=== PATIENT | female | born 1985 | race Caucasian/White ===

== ENCOUNTER 2017-08-21 18:41 | Emergency (ER) | payer SELFPAY ==
[2017-08-21 20:49] LABS: Basophils % (Auto) 0.4 % (0.0-1.8); Eosinophils # (Auto) 0.1 K/mm3 (0.0-0.4); Eosinophils % (Auto) 0.8 % (0.0-4.3); Hematocrit 38.2 % (30.3-42.9); Hemoglobin 12.5 gm/dl (10.1-14.3); Lymphocytes # (Auto) 3.8 K/mm3 (1.2-5.4); Lymphocytes % (Auto) 34.8 % (13.4-35.0); Mean Corpuscular HGB Conc 33 % (30-34); Mean Corpuscular Hemoglobin 29 pg (28-32); Mean Corpuscular Volume 88 fl (79-97); Monocytes # (Auto) 0.8 K/mm3 (0.0-0.8); Monocytes % (Auto) 7.1 % (0.0-7.3); Platelet Count 272 K/mm3 (140-440); Red Blood Count 4.34 M/mm3 (3.65-5.03); Red Cell Distribution Width 13.8 % (13.2-15.2)
[2017-08-21 21:21] LABS: Alanine Aminotransferase 14 units/L (7-56); BUN/Creatinine Ratio 27; Blood Urea Nitrogen 16 mg/dL (7-17); Hemolysis Index 5; Lipase 21 units/L (13-60)
[2017-08-21] MEDS ORDERED: TYLENOL PO ONE (22:28)
[2017-08-22 01:56] LABS: Bacteria,Urine 1+ /HPF (Negative); Bilirubin,Urine NEG (Negative); Blood,Urine SM (Negative); Color,Urine Yellow (Yellow); Nitrite,Urine NEG (Negative); Protein,Urine <15 mg/dL mg/dL (Negative); Urobilinogen,Urine < 2.0 mg/dL (<2.0)
[2017-08-22 03:39] VITALS: BP 112/61
[2017-08-22 07:50] LABS: Hyaline Casts,Urine 1 /LPF
== END 2017-08-22 10:09 | disposition left against medical advice (07) ==
LOC: ED 18:41
DX: R10.9 Unspecified abdominal pain (principal); Z53.21 Procedure and treatment not carried out due to patient leaving prior to being seen by health care provider
CPT/HCPCS: 36415; 80053; 81001; 83690; 84703; 85025

== ENCOUNTER 2017-08-22 12:34 | Inpatient (IN) | payer OTHER ==
[2017-08-22 14:45] LABS: Basophils % (Auto) 0.5 % (0.0-1.8); Eosinophils # (Auto) 0.1 K/mm3 (0.0-0.4); Eosinophils % (Auto) 0.8 % (0.0-4.3); Hematocrit 38.7 % (30.3-42.9); Hemoglobin 12.9 gm/dl (10.1-14.3); Lymphocytes # (Auto) 2.6 K/mm3 (1.2-5.4); Lymphocytes % (Auto) 27.6 % (13.4-35.0); Mean Corpuscular HGB Conc 33 % (30-34); Mean Corpuscular Hemoglobin 29 pg (28-32); Mean Corpuscular Volume 88 fl (79-97); Monocytes # (Auto) 0.6 K/mm3 (0.0-0.8); Monocytes % (Auto) 5.9 % (0.0-7.3); Platelet Count 260 K/mm3 (140-440); Red Blood Count 4.42 M/mm3 (3.65-5.03); Red Cell Distribution Width 13.8 % (13.2-15.2)
[2017-08-22 15:00] LABS: HCG Qualitative,Urine Negative (Negative)
[2017-08-22 15:02] LABS: Bacteria,Urine 1+ /HPF (Negative); Bilirubin,Urine NEG (Negative); Blood,Urine SM (Negative); Color,Urine Yellow (Yellow); Mucus,Urine FEW /HPF; Nitrite,Urine NEG (Negative); Protein,Urine <15 mg/dL mg/dL (Negative); Urobilinogen,Urine < 2.0 mg/dL (<2.0)
[2017-08-22 15:06] LABS: Alanine Aminotransferase 15 units/L (7-56); Albumin 4.2 g/dL (3.9-5); BUN/Creatinine Ratio 24; Blood Urea Nitrogen 12 mg/dL (7-17); Calcium 9.1 mg/dL (8.4-10.2); Hemolysis Index 17; Lipase 15 units/L (13-60)
[2017-08-22 15:07] LABS: Bilirubin,Direct < 0.2 mg/dL (0-0.2)
--- NOTE | 2017-08-22 15:52 | Emergency Department Report ---
HPI - General Chief Complaint: Abdominal Pain Time Seen by Provider: 08/22/17 14:40 - HPI HPI: 32-year-old female presents to the emergency department with right upper quadrant abdominal pain has been going on for the past week but worsened in the past 2 days. She has some mild nausea with one episode of vomiting. She denies any fever, dysuria, vaginal bleeding or discharge. The patient was supposed to have a cholecystectomy done a week ago but she was found not to have insurance and was denied, allegedly. She went to see Dr. Cleveland in his office today and was told to come to the emergency department for suspected cholecystitis. She was given a dose of Levaquin prior to arrival. She denies any other past medical history. She denies tobacco or illicit drug use or abuse. ED Past Medical Hx - Past Medical History Previous Medical History?: No Hx Kidney Stones: Yes - Surgical History Past Surgical History?: No - Social History Smoking Status: Never Smoker Substance Use Type: None - Medications Home Medications: Home Medications Medication Instructions Recorded Confirmed Last Taken Type Ibuprofen [Motrin] 800 mg PO TID PRN #20 tablet 09/04/13 08/22/17 Unknown Rx ED Review of Systems ROS: Stated complaint: ABDOMINAL PAIN Other details as noted in HPI Comment: All other systems reviewed and negative Constitutional: denies: chills, fever Eyes: denies: eye pain, eye discharge, vision change ENT: denies: ear pain, throat pain Respiratory: denies: cough, shortness of breath, wheezing Cardiovascular: denies: chest pain, palpitations Gastrointestinal: abdominal pain, nausea, vomiting Genitourinary: denies: urgency, dysuria, discharge Musculoskeletal: denies: back pain, joint swelling, arthralgia Skin: denies: rash, lesions Neurological: denies: headache, weakness, paresthesias Physical Exam - Physical Exam Vital Signs: Vital Signs 08/22/17 13:36 Temperature 98.2 F Pulse Rate 61 Respiratory 16 Rate Blood Pressure 101/32 O2 Sat by Pulse 99 Oximetry Physical Exam: GENERAL: The patient is well-developed well-nourished. HENT: Normocephalic. Atraumatic. Patient has moist mucous membranes. EYES: Extraocular motions are intact. Pupils equal reactive to light bilaterally. NECK: Supple. Trachea is midline. CHEST/LUNGS: Clear to auscultation. There is no respiratory distress noted. HEART/CARDIOVASCULAR: Regular. There is no tachycardia. There is no murmur. ABDOMEN: Abdomen is soft. There is tenderness palpation to the right upper quadrant of the abdomen. No guarding or rebound tenderness. Patient has normal bowel sounds. Obese habitus.. SKIN: Skin is warm and dry. NEURO: The patient is awake, alert, and oriented. The patient is cooperative. The patient has no focal neurologic deficits. The patient has normal speech. MUSCULOSKELETAL: There is no tenderness or deformity. There is no limitation range of motion. There is no evidence of acute injury. ED Course Vital Signs 08/22/17 13:36 Temperature 98.2 F Pulse Rate 61 Respiratory 16 Rate Blood Pressure 101/32 O2 Sat by Pulse 99 Oximetry ED Medical Decision Making - Lab Data Result diagrams: 08/22/17 14:27 08/22/17 14:27 - Radiology Data Radiology results: report reviewed EXAM: US ABDOMEN LIMITED HISTORY: RUQ pain, concern for cholecystitis TECHNIQUE: Ultrasound examination of the abdomen PRIORS: None. FINDINGS: Normal-appearing aorta, liver, gallbladder, common bile duct, and visible portion of pancreas. No right upper quadrant ascites. Normal right renal size measuring 10.3 x 5.9 x 4.6 cm. Normal right renal cortical thickness at 1.5 cm. Final image of the right kidney demonstrates mild separation of the renal sinus fat which may reflect mild hydronephrosis. No ultrasound evidence of caliectasis. IMPRESSION: Slight prominence of right renal pelvis on final image may reflect mild hydronephrosis Normal-appearing gallbladder and common bile duct Transcribed By: ALEKSANDR Dictated By: MARAH ALEXANDRE MD Electronically Authenticated By: MARAH ALEXANDRE MD Signed Date/Time: 08/22/17 1146 - Medical Decision Making Patient has been dealing with some biliary colic and/or gallbladder issues for the past week or so. Sent in by the general surgeon who saw her in the emergency department as well. Labs are unremarkable and ultrasound does not show any signs of cholelithiasis or cholecystitis. Patient will have a HIDA scan but currently the nuclear medicine lab is out of the necessary chemicals and/or testing supplies. Dr cleveland will admit the patient to his service for pain control and further evaluation. Sadia was bedside to assist with estonian translation. - Differential Diagnosis cholelithiasis, cholecystitis, pancreatitis, gastritis Critical Care Time: No Critical care attestation.: If time is entered above; I have spent that time in minutes in the direct care of this critically ill patient, excluding procedure time. ED Disposition Clinical Impression: Right upper quadrant abdominal pain, Biliary colic UTI (urinary tract infection) Qualifiers: Urinary tract infection type: acute cystitis Hematuria presence: without hematuria Qualified Code(s): N30.00 - Acute cystitis without hematuria Disposition: OP ADMIT IP TO THIS HOSP Is pt being admited?: Yes Condition: Stable Time of Disposition: 16:02
[2017-08-22] MEDS ORDERED: ZOFRAN IV ONE (16:35)
[2017-08-22] MEDS ORDERED: MORPHINE IV ONE (16:35)
[2017-08-22] MEDS ORDERED: NACL 0.9% 1000 ML 1,000 ML IV SCH (17:00)
[2017-08-22] MEDS ORDERED: D5/0.45NS 1,000 ML IV ONE (17:46)
[2017-08-22] MEDS: D5/0.45NS 1,000 ML IV SCH (17:51)
[2017-08-23] MEDS: ZOFRAN IV PRN ×3 (00:36→13:39)
[2017-08-23] MEDS: HEPARIN SUB-Q SCH ×4 (00:43→21:07)
[2017-08-23] MEDS: MORPHINE IV PRN ×2 (08:49→13:38)
[2017-08-23] MEDS: D5/0.45NS 1,000 ML IV SCH ×2 (08:50→18:03)
--- NOTE | 2017-08-23 14:06 | Progress Note ---
Assessment and Plan 32 y/o female c/o RUQ abd pain. GB US in ER a few wks back at [facility] described as "thickened GB wall" PMH & PSH neg Pt returns to ER now with persistent RUQ abd pain. + N&V Abd RUQ tenderness GB US - neg stones or thickened wall at this time r/o biliary colic/ dyskenesia admit keep NPO IVF hydration HIDA scan with EF Selected Entries 08/23/17 08/23/17 07:43 13:38 Temperature 98.1 F Pulse Rate 60 Respiratory 20 Rate Blood Pressure 104/58 Laboratory Tests 08/22/17 08/22/17 14:27 14:27 WBC 9.5 Hgb 12.9 Hct 38.7 Sodium 138 Potassium 4.4 Chloride 102.0 Carbon Dioxide 26 BUN 12 Creatinine 0.5 L Total Bilirubin 0.40 Direct Bilirubin < 0.2 AST 15 ALT 15 Alkaline Phosphatase 111 Amylase 27 Lipase 15 Objective Vital Signs - 12hr 08/23/17 08/23/17 08/23/17 05:05 07:43 08:49 Temperature 97.6 F 98.1 F Pulse Rate 49 L 60 Respiratory 20 12 20 Rate Blood Pressure 89/43 104/58 O2 Sat by Pulse 100 98 Oximetry 08/23/17 13:38 Temperature Pulse Rate Respiratory 20 Rate Blood Pressure O2 Sat by Pulse Oximetry - Labs 08/22/17 14:27 08/22/17 14:27 Diabetes panel 08/22/17 Range/Units 14:27 Sodium 138 (137-145) mmol/L Potassium 4.4 (3.6-5.0) mmol/L Chloride 102.0 (98-107) mmol/L Carbon Dioxide 26 (22-30) mmol/L BUN 12 (7-17) mg/dL Creatinine 0.5 L (0.7-1.2) mg/dL Glucose 84 (65-100) mg/dL Calcium 9.1 (8.4-10.2) mg/dL AST 15 (5-40) units/L ALT 15 (7-56) units/L Alkaline Phosphatase 111 (35-129) units/L Total Protein 7.6 (6.3-8.2) g/dL Albumin 4.2 (3.9-5) g/dL Calcium panel 08/22/17 Range/Units 14:27 Calcium 9.1 (8.4-10.2) mg/dL Albumin 4.2 (3.9-5) g/dL Pituitary panel 08/22/17 Range/Units 14:27 Sodium 138 (137-145) mmol/L Potassium 4.4 (3.6-5.0) mmol/L Chloride 102.0 (98-107) mmol/L Carbon Dioxide 26 (22-30) mmol/L BUN 12 (7-17) mg/dL Creatinine 0.5 L (0.7-1.2) mg/dL Glucose 84 (65-100) mg/dL Calcium 9.1 (8.4-10.2) mg/dL Adrenal panel 08/22/17 Range/Units 14:27 Sodium 138 (137-145) mmol/L Potassium 4.4 (3.6-5.0) mmol/L Chloride 102.0 (98-107) mmol/L Carbon Dioxide 26 (22-30) mmol/L BUN 12 (7-17) mg/dL Creatinine 0.5 L (0.7-1.2) mg/dL Glucose 84 (65-100) mg/dL Calcium 9.1 (8.4-10.2) mg/dL Total Bilirubin 0.40 (0.1-1.2) mg/dL AST 15 (5-40) units/L ALT 15 (7-56) units/L Alkaline Phosphatase 111 (35-129) units/L Total Protein 7.6 (6.3-8.2) g/dL Albumin 4.2 (3.9-5) g/dL
--- NOTE | 2017-08-23 14:35 | History and Physical Report ---
ADMITTING DIAGNOSIS: Rule out gallbladder disease. HISTORY OF PRESENT ILLNESS: The patient is a 32-year-old female, who was originally seen in [facility] Emergency Room 2 to 3 weeks ago with a chief complaint of right upper quadrant abdominal pain accompanied by nausea. Gallbladder ultrasound done at that institution revealed what was described as thickened gallbladder wall. right upper quadrant pain. Yesterday, her pain worsened and it was accompanied by nausea and vomiting. Thus, her arrival to the Emergency Room. PAST MEDICAL HISTORY: Negative. PAST SURGICAL HISTORY: Negative. ALLERGIES: No known allergies. MEDICATIONS: No medications. FAMILY HISTORY: Diabetes. SOCIAL HISTORY: Denies any smoking or drinking. REVIEW OF SYSTEMS: Noncontributory. PHYSICAL EXAMINATION: GENERAL: At this time reveals the patient to be awake, alert, and cooperative. Moderate discomfort, but no acute distress. VITAL SIGNS: Show her to be afebrile with a temperature of 98.1, blood pressure 104/58, pulse of 60, respirations of 20. HEENT: Her pupils are equal and reactive to light and accommodation. Sclerae is nonicteric. NECK: Supple, no thyromegaly or adenopathy. CHEST: Lungs clear to auscultation and percussion. HEART: Normal sinus rhythm. No gross murmurs. ABDOMEN: Examination of the abdomen reveals to be obese and soft. There is localized right upper quadrant tenderness with mild guarding. Bowel sounds are present, somewhat hypoactive. EXTREMITIES: Show full range of motion x 4, no edema or cyanosis. NEUROLOGIC: Grossly within normal limits. LABORATORY DATA: Lab work at present includes a CBC which shows a white count of 9.5, H and H is 12.9 and 38.7. Electrolytes were essentially within normal limits including sodium 138, potassium 4.4, chloride of 102, BUN is 12, creatinine is 0.5. LFTs are normal including total bilirubin of 0.4, AST is 15, ALT is also 15, alkaline phosphatase is 111. Amylase is 27. Lipase is 15. Gallbladder ultrasound done in ER reveals no evidence of any stones or gallbladder wall thickening at this time. However, the patient continues to have localized right upper quadrant pain and states that she cannot eat secondary to her pain and nausea. IMPRESSION: At this time is that of: 1. Rule out biliary dyskinesia. 2. Rule out biliary colic. RECOMMENDATION: At this time, we will keep the patient n.p.o., on IV fluid hydration. We will proceed with HIDA scan to rule out possible acalculous cholecystitis versus biliary dyskinesia. JOB# [id number] CELSO/BEAN
[2017-08-24] MEDS: D5/0.45NS 1,000 ML IV SCH ×2 (00:39→10:06)
[2017-08-24] MEDS: HEPARIN SUB-Q SCH ×2 (05:47→17:28)
[2017-08-24] MEDS ORDERED: WATER FOR INJ (PF) 10 ML ONE (07:30)
[2017-08-24] MEDS ORDERED: KINEVAC IV ONE ×2 (07:31→07:32)
[2017-08-24] MEDS ORDERED: WATER FOR INJ (PF) IV ONE (07:34)
--- NOTE | 2017-08-24 09:28 | Nuclear Medicine Report ---
Nuclear gallbladder imaging with ejection fraction: Right upper quadrant pain. Following injection of radionuclide anterior imaging of the liver is unremarkable. There is prompt visualization of the gallbladder at 20 minutes and the bowel is visualized at 45 minutes. Kinevac was injected according to protocol in approximately 60 minutes and the patient's symptoms were reproduced. A peak ejection fraction of 8% is noted at 20 minutes. Impression: Patent cystic duct. 8% ejection fraction.
--- NOTE | 2017-08-24 12:25 | Progress Note ---
Assessment and Plan Pt c/o RUQ abd pain Abd soft. localized tenderness HIDA - inj immediately mimicked RUQ pain symptoms. also very low 8% EF imp - severely symptomatic biliary dyskenesia will proceed with lap GB in am. risks, indications and complications reviewed consent signed Selected Entries 08/24/17 12:02 Temperature 98.5 F Pulse Rate 52 L Respiratory 18 Rate Blood Pressure 94/50 Objective Vital Signs - 12hr 08/24/17 08/24/17 08/24/17 00:43 04:45 09:08 Temperature 97.8 F 98.1 F Pulse Rate 56 L 57 L Respiratory 18 18 Rate Blood Pressure 94/60 87/42 Blood Pressure 94/49 [Left] O2 Sat by Pulse 99 98 Oximetry 08/24/17 12:02 Temperature 98.5 F Pulse Rate 52 L Respiratory 18 Rate Blood Pressure 94/50 Blood Pressure [Left] O2 Sat by Pulse 97 Oximetry - Labs 08/22/17 14:27 08/22/17 14:27
[2017-08-24] MEDS: NACL 0.9% 1000 ML 1,000 ML IV SCH (12:26)
[2017-08-24] MEDS: MORPHINE IV PRN ×2 (12:30→17:27)
--- NOTE | 2017-08-24 14:40 | Anesthesia Consultation ---
Anesthesia Consult and Med Hx Date of service: 08/24/17 - Airway Anesthetic Teeth Evaluation: Poor ROM Head & Neck: Adequate Mental/Hyoid Distance: Adequate Mallampati Class: Class III Intubation Access Assessment: Possibly Difficult - Pulmonary Exam CTA: Yes - Cardiac Exam Cardiac Exam: RRR - Pre-Operative Health Status ASA Pre-Surgery Classification: ASA2 Proposed Anesthetic Plan: General - Pre-Anesthesia Comment Pre-Anesthesia Comments: gallbladder disease - Other Systems Hx Obesity: Yes
[2017-08-24] MEDS ORDERED: VERSED IV NR (15:00)
[2017-08-25] MEDS: HEPARIN SUB-Q SCH ×2 (00:49→06:36)
[2017-08-25] MEDS ORDERED: PEPCID IV NR (05:00)
[2017-08-25] MEDS: D5/0.45NS 1,000 ML IV SCH (08:56)
[2017-08-25] MEDS ORDERED: MARCAINE 0.5% 30 ML INFILTRATI ONE (09:57)
[2017-08-25] MEDS ORDERED: MARCAINE 0.5% INFILTRATI ONE ×2 (10:12→12:18)
--- NOTE | 2017-08-25 10:31 | Anesthesia Day of Surgery ---
Anesthesia Day of Surgery - Day of Surgery Patient Examined: Yes Patient H&P Reviewed: Yes Patient is NPO: Yes
[2017-08-25] MEDS: NACL 0.9% 1000 ML 1,000 ML IV SCH (10:56)
[2017-08-25] MEDS ORDERED: VERSED IV NR (11:00)
[2017-08-25] MEDS ORDERED: DIPRIVAN 10 MG/ML IV ONE (11:07)
[2017-08-25] MEDS ORDERED: XYLOCAINE MPF 2% ONE (11:07)
[2017-08-25] MEDS ORDERED: SUBLIMAZE ONE (11:07)
[2017-08-25] MEDS ORDERED: DECADRON ONE (11:46)
[2017-08-25] MEDS ORDERED: PERCOCET 5/325 PO PRN (11:51)
[2017-08-25] MEDS ORDERED: ceFAZolin 2 GM in NACL 0.9% 100 ML IV ONE (11:56)
[2017-08-25] MEDS ORDERED: ANCEF/STERILE WATER 2 GM/20 ML 2 GM/20 ML SYRINGE IV ONE ×2 (11:59→12:00)
[2017-08-25] MEDS ORDERED: ZOFRAN ONE (12:31)
[2017-08-25] MEDS ORDERED: ROBINUL ONE ×2 (12:41→12:44)
[2017-08-25] MEDS ORDERED: NEOSTIGMINE ONE (12:41)
[2017-08-25] MEDS ORDERED: DILAUDID ONE (12:43)
[2017-08-25] MEDS: DILAUDID IV PRN ×4 (13:12→13:40)
--- NOTE | 2017-08-25 13:14 | Operative Report ---
PREOPERATIVE DIAGNOSIS: Gallbladder disease. POSTOPERATIVE DIAGNOSIS: Gallbladder disease. PROCEDURE: Laparoscopic cholecystectomy. SURGEON: Ben Morales MD. CUT OFF SAWYER: Dr. Bullard. ANESTHESIA: General. ESTIMATED BLOOD LOSS: Minimal. DRAINS: None. COMPLICATIONS: None. DESCRIPTION OF PROCEDURE: The patient was taken to the operating room and prepped and draped in usual sterile fashion. A Veress needle was inserted and CO2 insufflation begun. A 5 mm trocar was then inserted and camera inserted. All other trocars were inserted under direct visualization. Gallbladder was then grasped at the fundus and infundibulum and retracted towards the right subphrenic space. Dissection was then carried out along Calot's triangle. The cystic duct and artery were delineated in their entire course. Both were then doubly clipped and transected. Hook electrocautery was used to dissect the gallbladder from the overlying liver bed. Prior to the removal, the liver bed was inspected for bleeding and noted to be dry. The cystic duct and artery stumps were once again visualized. The clips were noted to be securely in place with no evidence of bleeding or bile leak. Gallbladder was then completely freed and brought out through the subxiphoid port. This area was inspected for bleeding and noted to be dry. Subxiphoid trocar was then gently inserted. All other 5 mm ports were removed under direct visualization. No bleeding or oozing noted. Subxiphoid trocar was then used to expel the CO2 and the trocar removed. The fascia at this site was closed with a [id number] 0 Vicryl suture. The skin at all port sites was closed with subcuticular 4-0 Vicryl. 0.5% Marcaine was infiltrated over the port sites for postoperative pain relief. The patient tolerated the procedure well and left the OR in stable condition. JOB# [id number] CELSO/BEAN
[2017-08-25] MEDS: MORPHINE IV PRN ×3 (14:47→21:42)
--- NOTE | 2017-08-25 15:41 | Post Anesthesia Evaluation ---
- Post Anesthesia Evaluation Patient Participated: Yes Airway Patent: Yes Stable Respiratory Function: Yes Nausea/Vomiting: No Temp > 96.8F: Yes Pain Manageable: Yes Adequeate Hydration: Yes Anesthesia Complications: No
[2017-08-25] MEDS: ZOFRAN IV PRN ×2 (18:02→21:42)
[2017-08-26] MEDS: MORPHINE IV PRN ×3 (04:44→16:00)
[2017-08-26 04:49] LABS: Basophils % (Auto) 0.4 % (0.0-1.8); Hematocrit 36.7 % (30.3-42.9); Hemoglobin 12.3 gm/dl (10.1-14.3); Lymphocytes % (Auto) 11.8 % (13.4-35.0); Mean Corpuscular HGB Conc 34 % (30-34); Mean Corpuscular Hemoglobin 29 pg (28-32); Mean Corpuscular Volume 86 fl (79-97); Monocytes # (Auto) 0.5 K/mm3 (0.0-0.8); Monocytes % (Auto) 5.4 % (0.0-7.3); Platelet Count 260 K/mm3 (140-440); Red Blood Count 4.28 M/mm3 (3.65-5.03); Red Cell Distribution Width 13.4 % (13.2-15.2)
[2017-08-26 05:45] LABS: Alanine Aminotransferase 51 units/L (7-56); BUN/Creatinine Ratio 12; Blood Urea Nitrogen 6 mg/dL (7-17); Calcium 9.1 mg/dL (8.4-10.2); Hemolysis Index 67
[2017-08-26] MEDS ORDERED: NACL 0.9% 1000 ML IV SCH (09:00)
--- NOTE | 2017-08-26 14:18 | Progress Note ---
Assessment and Plan Pt feeling well without compl. Abd soft non tender + BS post-op labs stable cl liq diet d/c today if diet hailee rto Fri Selected Entries 08/26/17 08/26/17 08/26/17 04:36 07:50 07:51 Temperature 98.2 F Pulse Rate 49 L Respiratory 18 Rate Blood Pressure 92/41 Laboratory Tests 08/22/17 08/26/17 08/26/17 14:27 04:20 04:20 WBC 8.4 Hgb 12.9 12.3 Hct 38.7 36.7 Total Bilirubin 0.40 AST 56 H ALT 51 Alkaline Phosphatase 102 Objective Vital Signs - 12hr 08/26/17 08/26/17 08/26/17 04:36 07:50 07:51 Temperature 98.4 F 98.2 F Pulse Rate 56 L 58 L 49 L Respiratory 18 14 Rate Blood Pressure 85/42 92/41 O2 Sat by Pulse 92 95 94 Oximetry - Labs 08/26/17 04:20 08/26/17 04:20 Diabetes panel 08/26/17 Range/Units 04:20 Sodium 140 (137-145) mmol/L Potassium 4.9 (3.6-5.0) mmol/L Chloride 102.3 (98-107) mmol/L Carbon Dioxide 19 L D (22-30) mmol/L BUN 6 L (7-17) mg/dL Creatinine 0.5 L (0.7-1.2) mg/dL Glucose 108 H (65-100) mg/dL Calcium 9.1 (8.4-10.2) mg/dL AST 56 H (5-40) units/L ALT 51 (7-56) units/L Alkaline Phosphatase 102 (35-129) units/L Total Protein 7.5 (6.3-8.2) g/dL Albumin 4.0 (3.9-5) g/dL Calcium panel 08/26/17 Range/Units 04:20 Calcium 9.1 (8.4-10.2) mg/dL Albumin 4.0 (3.9-5) g/dL Pituitary panel 08/26/17 Range/Units 04:20 Sodium 140 (137-145) mmol/L Potassium 4.9 (3.6-5.0) mmol/L Chloride 102.3 (98-107) mmol/L Carbon Dioxide 19 L D (22-30) mmol/L BUN 6 L (7-17) mg/dL Creatinine 0.5 L (0.7-1.2) mg/dL Glucose 108 H (65-100) mg/dL Calcium 9.1 (8.4-10.2) mg/dL Adrenal panel 08/26/17 Range/Units 04:20 Sodium 140 (137-145) mmol/L Potassium 4.9 (3.6-5.0) mmol/L Chloride 102.3 (98-107) mmol/L Carbon Dioxide 19 L D (22-30) mmol/L BUN 6 L (7-17) mg/dL Creatinine 0.5 L (0.7-1.2) mg/dL Glucose 108 H (65-100) mg/dL Calcium 9.1 (8.4-10.2) mg/dL Total Bilirubin 0.40 (0.1-1.2) mg/dL AST 56 H (5-40) units/L ALT 51 (7-56) units/L Alkaline Phosphatase 102 (35-129) units/L Total Protein 7.5 (6.3-8.2) g/dL Albumin 4.0 (3.9-5) g/dL
[2017-08-26 18:05] VITALS: BP 105/54
--- NOTE | 2017-08-27 01:31 | Discharge Summary ---
DISCHARGE DIAGNOSIS: Biliary gallbladder disease. PROCEDURE: Laparoscopic cholecystectomy. INDICATION FOR THE PROCEDURE: The patient is a 32-year-old female, who was admitted at this time with chief complaint of right upper quadrant abdominal pain accompanied by nausea and vomiting. She had been seen in [facility] recently where gallbladder ultrasound revealed thickened gallbladder wall. The patient has continued to have symptoms and is progressively been getting worse. At this time, gallbladder ultrasound was done in the ER, which did not reveal stones. However, the patient was significantly tender in the right upper quadrant, thus for admission. Subsequent HIDA scan did indeed reveal very low ejection fraction of 8%, also the pain was stimulated during the injection of Kinevac. The patient also underwent laparoscopic cholecystectomy, which she underwent without incident. Her postoperative has been essentially unremarkable. Currently the patient is postoperative day #1, afebrile, and now feeling well without complaints. Her postop labs include CBC, which revealed white count of 8.4 and H and H of 12 and 36.7, stable from 12 and 38 preop. Postop LFTs were also within normal limits including a total bili of 0.4, AST of 56, ALT of 51, and alkaline phosphatase of 102. The patient's abdomen is soft and nontender, and she has no complaints. The patient will thus be started on a clear liquid diet this morning and will tentatively be discharged today if her diet is well tolerated. She has been instructed to call me immediately if she has any evidence of nausea, vomiting, abdominal pain, or fever. If not, the patient will advance herself to a solid, low fat diet at home in the morning and follow up in the office in 1 week. [facility]# [id number] CELSO/BEAN
== END 2017-08-26 16:45 | disposition home or self-care (01) | DRG 418 ==
LOC: ED 12:34 → 3B-SURG 16:02 → OBSVTOIN 08-24 15:07
PROVIDERS: ADMIT Surgery; ATTEND Surgery
PROC: 0FT44ZZ Resection of Gallbladder, Percutaneous Endoscopic Approach (ICD-10-PCS; principal; 2017-08-25)
DX: K80.50 Calculus of bile duct without cholangitis or cholecystitis without obstruction (principal); N30.00 Acute cystitis without hematuria
CPT/HCPCS: 36415; 76705; 78227; 80048; 80053; 80074; 81001; 81025; 82150; 83690; 85025; 88304; 96374; 96375; A9537; G0378; J0690; J1100; J1170; J1644; J2250; J2270; J2405; J2704; J2710; J2805; J3010; J7030